=== PATIENT | female | born 1940 | race Caucasian/White ===

== ENCOUNTER 2017-12-24 13:49 | Inpatient (IN) | payer MEDICARE, OTHER ==
[~2017-12-24] VITALS: Ht 154.9 cm; Wt 65.3 kg
[~2017-12-24 13:49] MED LIST: ALPR0.257 PO; AMLO5TAB2 PO; ASPI-650 PO; ATOR40TA78 PO; CITA10TA4 PO; HYDR-882 PO; HYDR12.53 PO; LIRA0.6P SQ; LOSA100T6 PO; LOSA50TA2 PO; METF500T9 PO; METO25TA35 PO; MULT-709 PO; POTA20TA14 PO; SITA50TA PO; magnesium PO; vitamin D PO
[2017-12-24] MEDS ORDERED: CEFTRIAXONE PMX 1GM/50ML 50 ML ONE (14:58)
[2017-12-24] MEDS ORDERED: SODIUM CHLORIDE FLUSH 10ML SYR IVF ONE (15:00)
[2017-12-24] MEDS ORDERED: CEFTRIAXONE PMX 1GM/50ML 50 ML IVPB ONE (15:00)
[2017-12-24 15:35] LABS: ALBUMIN 3.9 g/dL (3.4-5.0); ANION GAP 8 mmol/L (5-15); CALCIUM 9.5 mg/dL (8.5-10.1); CHLORIDE 105 mmol/L (98-107); CREATININE 1.41 mg/dL (0.55-1.02)
[2017-12-24 15:39] LABS: BASOPHILS # (AUTO) 0.05 x10^3/uL (0-0.1); BASOPHILS % (AUTO) 0 % (0-1); EOSINOPHILS # (AUTO) 0.04 x10^3/uL (0-0.4); EOSINOPHILS % (AUTO) 0 % (1-7); LYMPHOCYTES % (AUTO) 15 % (22-44); MD NO; MEAN CORPUSCULAR HGB CONC 33.4 g/dL (32.4-35.8); MEAN CORPUSCULAR VOLUME 89.8 fL (80-100); MEAN PLATELET VOLUME 8.2 fL (7.4-10.4); MONOCYTES % (AUTO) 5 % (2-9); NEUTROPHILS # (AUTO) 8.63 x10^3/uL (1.8-6.8); NEUTROPHILS % (AUTO) 80 % (42-75); PLATELET COUNT 181 x10^3/uL (130-400); RED BLOOD COUNT 4.52 x10^6/uL (3.82-5.3); RED CELL DISTRIBUTION WIDTH 13.7 % (9.6-15.2)
[2017-12-24] MEDS ORDERED: ACETAMINOPHEN 325 MG TABLET PO PRN (16:30)
[2017-12-24] MEDS ORDERED: BISACODYL 10 MG SUPP PR PRN (16:30)
[2017-12-24] MEDS ORDERED: DOCUSATE 100 MG CAPSULE PO PRN (16:30)
[2017-12-24] MEDS ORDERED: LABETALOL 5MG/ML, 20ML IVPush PRN (16:30)
[2017-12-24] MEDS ORDERED: ONDANSETRON ODT 4 MG PO PRN (16:30)
[2017-12-24] MEDS ORDERED: ENALAPRILAT 1.25 MG/ML, 2ML IVPush PRN (16:30)
[2017-12-24 16:36] LABS: HCT (SEDRATE) 40.6 % (34.6-47.8)
[2017-12-24 17:07] LABS: HEMOGLOBIN A1C 7.5 % (4.2-6.3)
[2017-12-24 17:21] VITALS: BP 101/66
[2017-12-24] MEDS: SODIUM CHLORIDE 0.9% 1,000 ML IV SCH (18:28)
[2017-12-24] MEDS: HEPARIN 5,000 UNITS/ML, 1ML SQ SCH (18:28)
[2017-12-24] MEDS: CLINDAMYCIN PMX 600MG/50ML 50 ML IV SCH (18:28)
[2017-12-24 19:28] VITALS: BP 108/70
[2017-12-24] MEDS: INSULIN LISPRO 100 UNITS/ML, PEN SQ-INSULIN SCH (20:33)
[2017-12-24] MEDS: METOPROLOL TARTRATE 25 MG TABLET PO SCH (21:13)
[2017-12-25 01:39] VITALS: BP 144/84
[2017-12-25] MEDS: HEPARIN 5,000 UNITS/ML, 1ML SQ SCH ×3 (02:30→18:17)
[2017-12-25] MEDS: CLINDAMYCIN PMX 600MG/50ML 50 ML IV SCH ×3 (02:30→18:16)
[2017-12-25] MEDS: SODIUM CHLORIDE 0.9% 1,000 ML IV SCH ×2 (03:09→15:05)
[2017-12-25 05:45] LABS: BASOPHILS # (AUTO) 0.03 x10^3/uL (0-0.1); BASOPHILS % (AUTO) 0 % (0-1); EOSINOPHILS # (AUTO) 0.11 x10^3/uL (0-0.4); EOSINOPHILS % (AUTO) 1 % (1-7); LYMPHOCYTES % (AUTO) 27 % (22-44); MD NO; MEAN CORPUSCULAR HGB CONC 34.1 g/dL (32.4-35.8); MEAN CORPUSCULAR VOLUME 90.8 fL (80-100); MEAN PLATELET VOLUME 8.4 fL (7.4-10.4); MONOCYTES # (AUTO) 0.52 x10^3/uL (0.2-0.8); MONOCYTES % (AUTO) 6 % (2-9); NEUTROPHILS # (AUTO) 5.92 x10^3/uL (1.8-6.8); NEUTROPHILS % (AUTO) 66 % (42-75); PLATELET COUNT 169 x10^3/uL (130-400); RED BLOOD COUNT 4.05 x10^6/uL (3.82-5.3); RED CELL DISTRIBUTION WIDTH 13.6 % (9.6-15.2)
[2017-12-25 05:50] LABS: ANION GAP 10 mmol/L (5-15); CALCIUM 8.6 mg/dL (8.5-10.1); CHLORIDE 108 mmol/L (98-107)
[2017-12-25 05:56] LABS: CHOL/HDL RATIO 2.2; CHOLESTEROL, TOTAL 114 mg/dL (140-239); CREATININE 1.05 mg/dL (0.55-1.02); HDL CHOL % 46 % (28-40); HDL CHOLESTEROL (DIRECT) 53 mg/dL (40-60); LDL CHOLESTEROL,CALCULATED 45 mg/dL (54-169); LDL/HDL RATIO 0.8 (0.5-3.0); TRIGLYCERIDES 82 mg/dL (50-200); VLDL CHOLESTEROL 16 mg/dL (0-25)
[2017-12-25 07:33] VITALS: BP 139/74
[2017-12-25] MEDS: INSULIN LISPRO 100 UNITS/ML, PEN SQ-INSULIN SCH ×4 (07:34→20:52)
[2017-12-25] MEDS ORDERED: LOSA25TA5 PO (08:57)
[2017-12-25] MEDS ORDERED: METO25TA35 PO (08:57)
[2017-12-25] MEDS ORDERED: ROSU40TA PO (08:57)
[2017-12-25 09:09] VITALS: BP 127/84
[2017-12-25] MEDS: MULTIVITAMINS/MINERALS TABLET PO SCH (09:11)
[2017-12-25] MEDS: SENNA/DOCUSATE TABLET PO SCH (09:11)
[2017-12-25] MEDS: METOPROLOL TARTRATE 25 MG TABLET PO SCH (09:11)
[2017-12-25] MEDS: ASPIRIN 81 MG TABLET EC PO SCH (09:12)
[2017-12-25] MEDS: POTASSIUM CHLORIDE 20 MEQ TAB.ER.PRT PO SCH (09:12)
[2017-12-25] MEDS: CITALOPRAM 10 MG TABLET PO SCH (09:12)
[2017-12-25] MEDS: LOSARTAN 50MG TABLET PO SCH (09:12)
[2017-12-25] MEDS: HYDROCHLOROTHIAZIDE 12.5 MG CAPSULE PO SCH (09:13)
[2017-12-25 13:33] VITALS: BP 122/76
[2017-12-25] MEDS ORDERED: GADOBUTROL 7.5 MMOL/7.5 ML PFS ONE (17:33)
[2017-12-25 19:54] VITALS: BP 116/70
[2017-12-26 01:49] VITALS: BP 109/66
[2017-12-26] MEDS: CLINDAMYCIN PMX 600MG/50ML 50 ML IV SCH ×3 (02:54→19:39)
[2017-12-26] MEDS: SODIUM CHLORIDE 0.9% 1,000 ML IV SCH ×3 (02:55→23:33)
[2017-12-26] MEDS: HEPARIN 5,000 UNITS/ML, 1ML SQ SCH ×3 (03:06→19:39)
[2017-12-26 05:13] LABS: ANION GAP 7 mmol/L (5-15); CALCIUM 8.3 mg/dL (8.5-10.1); CHLORIDE 110 mmol/L (98-107); CREATININE 1.03 mg/dL (0.55-1.02)
[2017-12-26] MEDS: INSULIN LISPRO 100 UNITS/ML, PEN SQ-INSULIN SCH ×4 (07:00→20:12)
[2017-12-26 09:05] VITALS: BP 142/71
[2017-12-26] MEDS: CHOLECALCIFEROL 400 UNITS TABLET PO SCH (10:16)
[2017-12-26] MEDS: MULTIVITAMINS/MINERALS TABLET PO SCH (10:17)
[2017-12-26] MEDS: METOPROLOL TARTRATE 25 MG TABLET PO SCH (10:17)
[2017-12-26] MEDS: LOSARTAN 50MG TABLET PO SCH (10:17)
[2017-12-26] MEDS: HYDROCHLOROTHIAZIDE 12.5 MG CAPSULE PO SCH (10:17)
[2017-12-26] MEDS: ASPIRIN 81 MG TABLET EC PO SCH (10:17)
[2017-12-26] MEDS: SENNA/DOCUSATE TABLET PO SCH (10:18)
[2017-12-26] MEDS: POTASSIUM CHLORIDE 20 MEQ TAB.ER.PRT PO SCH (10:18)
[2017-12-26] MEDS: MAGNESIUM OXIDE 400 MG TABLET PO SCH (10:19)
[2017-12-26] MEDS: CITALOPRAM 10 MG TABLET PO SCH (10:21)
[2017-12-26 14:52] VITALS: BP 141/75
[2017-12-26 19:40] VITALS: BP 149/89
[2017-12-27 01:52] VITALS: BP 141/82
[2017-12-27] MEDS: HEPARIN 5,000 UNITS/ML, 1ML SQ SCH ×2 (03:14→10:48)
[2017-12-27] MEDS: CLINDAMYCIN PMX 600MG/50ML 50 ML IV SCH ×2 (03:14→10:49)
[2017-12-27 05:57] LABS: BASOPHILS # (AUTO) 0.02 x10^3/uL (0-0.1); BASOPHILS % (AUTO) 0 % (0-1); EOSINOPHILS % (AUTO) 1 % (1-7); LYMPHOCYTES # (AUTO) 2.22 x10^3/uL (1-3.4); LYMPHOCYTES % (AUTO) 25 % (22-44); MD NO; MEAN CORPUSCULAR HEMOGLOBIN 30.4 pg (27.0-34.8); MEAN CORPUSCULAR VOLUME 89.3 fL (80-100); MEAN PLATELET VOLUME 8.6 fL (7.4-10.4); MONOCYTES # (AUTO) 0.68 x10^3/uL (0.2-0.8); MONOCYTES % (AUTO) 8 % (2-9); NEUTROPHILS # (AUTO) 5.76 x10^3/uL (1.8-6.8); NEUTROPHILS % (AUTO) 66 % (42-75); PLATELET COUNT 187 x10^3/uL (130-400); RED BLOOD COUNT 3.75 x10^6/uL (3.82-5.3); RED CELL DISTRIBUTION WIDTH 13.6 % (9.6-15.2)
[2017-12-27 06:09] LABS: ALANINE AMINOTRANSFERASE 74 U/L (12-78); ALBUMIN 2.9 g/dL (3.4-5.0); ANION GAP 11 mmol/L (5-15); CALCIUM 8.9 mg/dL (8.5-10.1); CHLORIDE 107 mmol/L (98-107); CREATININE 0.95 mg/dL (0.55-1.02)
[2017-12-27 06:11] LABS: ALKALINE PHOSPHATASE 68 U/L (45-117); BILIRUBIN,TOTAL 0.8 mg/dL (0.2-1.0); TOTAL PROTEIN 7.3 g/dL (6.4-8.2)
[2017-12-27] MEDS: INSULIN LISPRO 100 UNITS/ML, PEN SQ-INSULIN SCH ×2 (08:05→11:00)
[2017-12-27 08:36] VITALS: BP 93/66
[2017-12-27] MEDS: LOSARTAN 50MG TABLET PO SCH (08:49)
[2017-12-27] MEDS: METOPROLOL TARTRATE 25 MG TABLET PO SCH (08:49)
[2017-12-27] MEDS: HYDROCHLOROTHIAZIDE 12.5 MG CAPSULE PO SCH (08:50)
[2017-12-27] MEDS: POTASSIUM CHLORIDE 20 MEQ TAB.ER.PRT PO SCH (08:55)
[2017-12-27] MEDS: ASPIRIN 81 MG TABLET EC PO SCH (08:55)
[2017-12-27] MEDS: CITALOPRAM 10 MG TABLET PO SCH (08:55)
[2017-12-27] MEDS: MAGNESIUM OXIDE 400 MG TABLET PO SCH (08:55)
[2017-12-27] MEDS: SODIUM CHLORIDE 0.9% 1,000 ML IV SCH (08:55)
[2017-12-27] MEDS: MULTIVITAMINS/MINERALS TABLET PO SCH (08:55)
[2017-12-27] MEDS: CHOLECALCIFEROL 400 UNITS TABLET PO SCH (08:55)
[2017-12-27] MEDS: SENNA/DOCUSATE TABLET PO SCH (08:56)
[2017-12-27 14:00] VITALS: BP 144/87
[2017-12-27] MEDS ORDERED: SULF1TAB24 PO (14:01)
[2017-12-27] MEDS ORDERED: IBUP-1221 PO (14:01)
[2017-12-27] MEDS ORDERED: METO25TA35 PO (14:01)
[2017-12-27] MEDS ORDERED: AMOX1TAB64 PO (14:01)
[2017-12-27] MEDS ORDERED: LOSARTAN 25MG TABLET PO SCH (21:00)
== END 2017-12-27 15:24 | disposition home or self-care (01) | DRG 602 ==
LOC: ED 14:50 → EDIP 14:51 → ED 15:13 → 3NE 17:03
PROVIDERS: ADMIT Internal Medicine; ATTEND Internal Medicine
DX: L03.116 Cellulitis of left lower limb (principal); N17.0 Acute kidney failure with tubular necrosis; E11.9 Type 2 diabetes mellitus without complications; E78.5 Hyperlipidemia, unspecified; I10 Essential (primary) hypertension; I25.10 Atherosclerotic heart disease of native coronary artery without angina pectoris; K21.9 Gastro-esophageal reflux disease without esophagitis; Z95.5 Presence of coronary angioplasty implant and graft; I25.2 Old myocardial infarction
CPT/HCPCS: 36415; 71045; 80048; 80053; 80061; 82040; 82962; 83036; 83605; 84550; 85025; 85651; 87040; 99285; A9585; J0696; J1644; J7030

== ENCOUNTER 2018-05-24 12:59 | Emergency (ER) | payer MEDICARE, OTHER ==
[~2018-05-24] VITALS: Ht 154.9 cm; Wt 62.3 kg
[~2018-05-24 12:59] MED LIST changes: -AMLO5TAB2 PO; +AMLO5TAB7 PO; +AMOX1TAB64 PO; +HYDR-3653 PO; -HYDR-882 PO; +IBUP-1221 PO; -LOSA100T6 PO; +LOSA100T7 PO; +LOSA25TA6 PO; +ROSU40TA PO; +SULF1TAB24 PO
[2018-05-24 13:57] LABS: BASOPHILS # (AUTO) 0.02 x10^3/uL (0-0.1); BASOPHILS % (AUTO) 0 % (0-1); EOSINOPHILS # (AUTO) 0.34 x10^3/uL (0-0.4); EOSINOPHILS % (AUTO) 5 % (1-7); LYMPHOCYTES # (AUTO) 2.36 x10^3/uL (1-3.4); LYMPHOCYTES % (AUTO) 37 % (22-44); MD NO; MEAN CORPUSCULAR HEMOGLOBIN 29.6 pg (27.0-34.8); MEAN CORPUSCULAR HGB CONC 33.2 g/dL (32.4-35.8); MEAN CORPUSCULAR VOLUME 89.1 fL (80-100); MEAN PLATELET VOLUME 8.2 fL (7.4-10.4); MONOCYTES # (AUTO) 0.43 x10^3/uL (0.2-0.8); MONOCYTES % (AUTO) 7 % (2-9); NEUTROPHILS % (AUTO) 50 % (42-75); PLATELET COUNT 190 x10^3/uL (130-400); RED BLOOD COUNT 4.77 x10^6/uL (3.82-5.3); RED CELL DISTRIBUTION WIDTH 15.8 % (9.6-15.2)
[2018-05-24 14:09] LABS: ALBUMIN 4.1 g/dL (3.4-5.0); ANION GAP 5 mmol/L (5-15); CALCIUM 9.3 mg/dL (8.5-10.1); CHLORIDE 111 mmol/L (98-107)
[2018-05-24 14:28] LABS: MICROSCOPIC AUTO
[2018-05-24 14:33] LABS: CULTURE INDICATED? YES
[2018-05-24 15:30] VITALS: BP 112/72
== END 2018-05-24 16:28 | disposition home or self-care (01) ==
LOC: ED 14:09
DX: H92.11 Otorrhea, right ear (principal); M79.18 Myalgia, other site; E11.9 Type 2 diabetes mellitus without complications; I10 Essential (primary) hypertension
CPT/HCPCS: 36415; 70450; 80048; 81001; 82040; 85025; 87086; 93005; 99285

== ENCOUNTER 2018-11-18 18:23 | Inpatient (IN) | payer MEDICARE, OTHER ==
[~2018-11-18] VITALS: Ht 152.4 cm; Wt 63.1 kg
[~2018-11-18 18:23] MED LIST changes: +AMLO-150 PO; -AMLO5TAB7 PO; +HYDR12.517 PO; -HYDR12.53 PO; +LOSA100T14 PO; -LOSA100T7 PO; +LOSA25TA25 PO; -LOSA25TA6 PO
[2018-11-18 18:43] LABS: BASOPHILS # (AUTO) 0.03 x10^3/uL (0-0.1); BASOPHILS % (AUTO) 0 % (0-1); EOSINOPHILS # (AUTO) 0.13 x10^3/uL (0-0.4); EOSINOPHILS % (AUTO) 1 % (1-7); LYMPHOCYTES # (AUTO) 3.58 x10^3/uL (1-3.4); LYMPHOCYTES % (AUTO) 39 % (22-44); MD NO; MEAN CORPUSCULAR HEMOGLOBIN 30.8 pg (27.0-34.8); MEAN CORPUSCULAR HGB CONC 33.6 g/dL (32.4-35.8); MEAN CORPUSCULAR VOLUME 91.9 fL (80-100); MONOCYTES # (AUTO) 0.47 x10^3/uL (0.2-0.8); MONOCYTES % (AUTO) 5 % (2-9); NEUTROPHILS # (AUTO) 5.01 x10^3/uL (1.8-6.8); NEUTROPHILS % (AUTO) 54 % (42-75); PLATELET COUNT 189 x10^3/uL (130-400); RED BLOOD COUNT 4.73 x10^6/uL (3.82-5.3); RED CELL DISTRIBUTION WIDTH 14.4 % (9.6-15.2)
[2018-11-18 18:50] LABS: TROPONIN I < 0.015 ng/mL (0.000-0.045)
[2018-11-18 18:58] LABS: ALBUMIN 3.7 g/dL (3.4-5.0)
--- NOTE | 2018-11-18 18:58 | NUR ---
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
[2018-11-18 19:00] LABS: BILIRUBIN, DIRECT 0.1 mg/dL (0.1-0.2)
[2018-11-18 19:01] LABS: BILIRUBIN,INDIRECT 0.3 mg/dL (0.0-2.0); BILIRUBIN,TOTAL 0.4 mg/dL (0.2-1.0); TOTAL PROTEIN 7.7 g/dL (6.4-8.2)
--- NOTE | 2018-11-18 19:01 | NUR ---
PT RETURNED FROM CT, HOB AT 30 DEGREES. PT PWD; PT FOLLOWING COMMANDS, SPEECH CLEAR. FACE SYMMETRICAL. PT REPORTS IMPROVEMENT IN [place]. BP/SPO2/ECG MONITORING IN PLACE. NSR ON MONITOR. FAMILY AT BEDSIDE LAB IN TO REDRAW
[2018-11-18 19:20] LABS: INTERNATIONAL NORMALIZED RATIO 1.02 (0.93-1.1); PROTHROMBIN TIME 10.7 Seconds (9.6-11.5)
--- NOTE | 2018-11-18 19:22 | NUR ---
STRAIGHT CATH COMPLETED. UA COLLECTED AND WALKED TO LAB. PT W/ FREQUENT QUESTIONING "HOW DID I GET HERE?", EASILY REORIENTED. PT OTHERWISE A&OX4. +STRENGTH X 4.
[2018-11-18] MEDS ORDERED: EZETIMIBE (19:31)
[2018-11-18] MEDS ORDERED: BUPROPRION (19:31)
--- NOTE | 2018-11-18 19:31 | NUR ---
PT REMAINS STABLE. PT DOWN GRADED TO CORE ROOM. REPORT TO SANTI HERR
[2018-11-18 19:38] LABS: MICROSCOPIC INDICATED
[2018-11-18 19:52] LABS: CULTURE INDICATED? YES
--- NOTE | 2018-11-18 20:22 | NUR ---
PHYSICIAN AT BEDSIDE. UPDATED ON POC.
[2018-11-18] MEDS ORDERED: CALCIUM GLUCONATE 9.2 MEQ in SODIUM CHLORIDE 0.9% 100 ML IV ONE (21:00)
[2018-11-18] MEDS ORDERED: ONDANSETRON 2MG/ML, 2ML IVPush PRN (21:00)
[2018-11-18] MEDS ORDERED: SODIUM POLYSTYRENE SULFONATE ORAL SUSP PO ONE ×2 (21:00→21:30)
[2018-11-18] MEDS ORDERED: CEFTRIAXONE PMX 1GM/50ML 50 ML IV ONE (21:00)
[2018-11-18] MEDS ORDERED: CEFTRIAXONE PMX 1GM/50ML 50 ML ONE (21:17)
--- NOTE | 2018-11-18 21:48 | NUR ---
REPORT GIVEN TO JONATHAN HANCOCK.
[2018-11-18 22:02] VITALS: BP 112/78
[2018-11-18] MEDS: SODIUM CHLORIDE 0.9% 1,000 ML IV SCH (22:23)
[2018-11-18] MEDS: INSULIN LISPRO 100 UNITS/ML, PEN SQ-INSULIN SCH (22:41)
[2018-11-19] VITALS (8 sets, daily range): BP systolic 89–137; BP diastolic 61–88
[2018-11-19 04:56] LABS: ANION GAP 4 mmol/L (5-15); CHLORIDE 113 mmol/L (98-107)
[2018-11-19 05:00] LABS: CREATININE 1.33 mg/dL (0.55-1.02); TROPONIN I < 0.015 ng/mL (0.000-0.045)
[2018-11-19 05:03] LABS: BASOPHILS # (AUTO) 0.03 x10^3/uL (0-0.1); BASOPHILS % (AUTO) 0 % (0-1); EOSINOPHILS # (AUTO) 0.11 x10^3/uL (0-0.4); EOSINOPHILS % (AUTO) 2 % (1-7); LYMPHOCYTES # (AUTO) 2.41 x10^3/uL (1-3.4); LYMPHOCYTES % (AUTO) 35 % (22-44); MD NO; MEAN CORPUSCULAR HGB CONC 33.6 g/dL (32.4-35.8); MEAN CORPUSCULAR VOLUME 92.3 fL (80-100); MEAN PLATELET VOLUME 7.7 fL (7.4-10.4); MONOCYTES # (AUTO) 0.34 x10^3/uL (0.2-0.8); MONOCYTES % (AUTO) 5 % (2-9); NEUTROPHILS # (AUTO) 4.06 x10^3/uL (1.8-6.8); NEUTROPHILS % (AUTO) 58 % (42-75); PLATELET COUNT 168 x10^3/uL (130-400); RED BLOOD COUNT 4.35 x10^6/uL (3.82-5.3); RED CELL DISTRIBUTION WIDTH 14.4 % (9.6-15.2)
[2018-11-19 05:34] LABS: HEMOGLOBIN A1C 6.9 % (4.2-6.3)
[2018-11-19] MEDS: INSULIN LISPRO 100 UNITS/ML, PEN SQ-INSULIN SCH ×4 (08:15→21:00)
[2018-11-19] MEDS: SODIUM CHLORIDE 0.9% 1,000 ML IV SCH ×2 (08:59→17:25)
[2018-11-19] MEDS ORDERED: LINAGLIPTIN 5 MG TAB PO SCH (09:00)
[2018-11-19] MEDS: BUPROPION SR 100 MG TABLET PO SCH ×2 (10:31→21:31)
[2018-11-19] MEDS: ASPIRIN 81 MG TABLET EC PO SCH (10:31)
[2018-11-19] MEDS: METOPROLOL SUCCINATE 50 MG TAB.ER.24H PO SCH (10:34)
[2018-11-19 15:25] LABS: CLOSTRIDIUM DIFFICILE ANTIGEN NEGATIVE; CLOSTRIDIUM DIFFICILE TOXIN NEGATIVE (Negative)
[2018-11-19 15:49] LABS: ANION GAP 7 mmol/L (5-15); CALCIUM 9.6 mg/dL (8.5-10.1); CHLORIDE 113 mmol/L (98-107); CREATININE 1.11 mg/dL (0.55-1.02)
[2018-11-19] MEDS ORDERED: ATORVASTATIN 20 MG TABLET PO SCH (21:00)
[2018-11-20 01:18] VITALS: BP 120/65
[2018-11-20 03:00] VITALS: BP_SYST 115; BP_SYST 119; BP_SYST 125; BP_SYST 162; BP_DIAS 81; BP_DIAS 83; BP_DIAS 85; BP_DIAS 86
[2018-11-20] MEDS: SODIUM CHLORIDE 0.9% 1,000 ML IV SCH (04:29)
[2018-11-20] MEDS: METOPROLOL SUCCINATE 50 MG TAB.ER.24H PO SCH (05:57)
[2018-11-20 05:59] LABS: CALCIUM 8.7 mg/dL (8.5-10.1); CHLORIDE 116 mmol/L (98-107)
[2018-11-20 06:02] LABS: ANION GAP 7 mmol/L (5-15)
[2018-11-20 06:58] VITALS: BP 115/78
[2018-11-20] MEDS: INSULIN LISPRO 100 UNITS/ML, PEN SQ-INSULIN SCH ×3 (07:00→16:00)
[2018-11-20 08:08] VITALS: BP 165/85
[2018-11-20] MEDS: ASPIRIN 81 MG TABLET EC PO SCH (08:08)
[2018-11-20] MEDS: BUPROPION SR 100 MG TABLET PO SCH (08:08)
[2018-11-20 08:11] VITALS: BP 122/82
[2018-11-20] MEDS ORDERED: REGADENOSON 0.4 MG/5 ML SYRINGE ONE (08:17)
[2018-11-20] MEDS ORDERED: OMNIPAQUE 350 MG/ML, 100ML BOTTLE ONE (11:05)
[2018-11-20 13:43] VITALS: BP 132/82
[2018-11-20] MEDS ORDERED: BUPR-173 PO (16:34)
[2018-11-20] MEDS ORDERED: EZET10TA26 PO (16:34)
[2018-11-20] MEDS ORDERED: METO-93 PO (16:34)
== END 2018-11-20 17:07 | disposition home or self-care (01) | DRG 73 ==
LOC: ED 18:44 → EDIP 20:32 → 5SO 22:12 → DCLOUNGE 11-20 16:55
PROVIDERS: ADMIT Internal Medicine; ATTEND Internal Medicine
PROC: 0T9B70Z Drainage of Bladder with Drainage Device, Via Natural or Artificial Opening (ICD-10-PCS; principal; 2018-11-18)
DX: G90.9 Disorder of the autonomic nervous system, unspecified (principal); N17.0 Acute kidney failure with tubular necrosis; G93.41 Metabolic encephalopathy; N39.0 Urinary tract infection, site not specified; E11.51 Type 2 diabetes mellitus with diabetic peripheral angiopathy without gangrene; F41.9 Anxiety disorder, unspecified; F32.9 Major depressive disorder, single episode, unspecified; E11.649 Type 2 diabetes mellitus with hypoglycemia without coma; E87.5 Hyperkalemia; E78.5 Hyperlipidemia, unspecified; I10 Essential (primary) hypertension; I25.10 Atherosclerotic heart disease of native coronary artery without angina pectoris; I25.2 Old myocardial infarction; Z79.4 Long term (current) use of insulin; Z79.82 Long term (current) use of aspirin; Z79.899 Other long term (current) drug therapy; Z95.5 Presence of coronary angioplasty implant and graft
CPT/HCPCS: 36415; 70450; 71045; 71275; 74174; 78452; 80047; 80048; 80076; 81001; 82962; 83036; 83735; 84443; 84484; 85025; 85379; 85610; 85730; 87040; 87086; 87324; 93005; 93017; 93306; 93880; 96374; G0378; J0610; J0696; J2785; Q9967; A9502; C9898; J1815; J7030

== ENCOUNTER 2019-08-15 08:53 | Outpatient (CLI) | payer MEDICARE, OTHER ==
[~2019-08-15 08:53] MED LIST changes: +BUPR-173 PO; +BUPROPRION; +EZET10TA48 PO; +EZETIMIBE; +METF500T12 PO; -METF500T9 PO; +METO-93 PO
== END 2019-08-15 23:59 | disposition home or self-care (01) ==
LOC: CVU 08:53
PROVIDERS: ATTEND Internal Medicine Cardiovascular Disease
DX: I67.9 Cerebrovascular disease, unspecified (principal); I70.0 Atherosclerosis of aorta; I25.10 Atherosclerotic heart disease of native coronary artery without angina pectoris; E78.5 Hyperlipidemia, unspecified; I10 Essential (primary) hypertension
CPT/HCPCS: 93978

== ENCOUNTER → 2019-09-06 | Outpatient (CLI) | payer MEDICARE, OTHER | END | disposition home or self-care (01) | LOC: CVU 08:26 | PROVIDERS: ATTEND Internal Medicine Cardiovascular Disease | DX: I65.23 Occlusion and stenosis of bilateral carotid arteries (principal); I10 Essential (primary) hypertension; E78.5 Hyperlipidemia, unspecified; I25.2 Old myocardial infarction | CPT/HCPCS: 93880 ==

== ENCOUNTER 2020-02-10 17:55 | Inpatient (IN) | payer MEDICARE, OTHER ==
[~2020-02-10] VITALS: Ht 154.9 cm; Wt 59.0 kg
[~2020-02-10 17:55] MED LIST changes: +METF-754 PO; -METF500T12 PO
--- NOTE | 2020-02-10 18:44 | NUR ---
PT BIB [facility] FOR C/O FATIGUE AND GENERAL MALAISE. PT DENIES ANY PAIN OR FURTHER SYMPTOMS. PT DAUGHTER AT BEDSIDE, STATES PT HAS NOT EATEN FOR 3 DAYS, AND HAS HAD LITTLE TO DRINK. EKG PERFORMED. LAB AT BEDSIDE FOR DRAW. PT DENIES ANY NEEDS NOE. CALL LIGHT IN REACH.
--- NOTE | 2020-02-10 18:52 | NUR ---
REPORT FROM MELVA HANCOCK.
[2020-02-10 18:55] LABS: BASOPHILS # (AUTO) 0.02 x10^3/uL (0-0.1); BASOPHILS % (AUTO) 0 % (0-1); EOSINOPHILS # (AUTO) 0.13 x10^3/uL (0-0.4); EOSINOPHILS % (AUTO) 2 % (1-7); LYMPHOCYTES # (AUTO) 1.34 x10^3/uL (1-3.4); LYMPHOCYTES % (AUTO) 23 % (22-44); MD NO; MEAN CORPUSCULAR HEMOGLOBIN 28.2 pg (27.0-34.8); MEAN CORPUSCULAR HGB CONC 32.6 g/dL (32.4-35.8); MEAN CORPUSCULAR VOLUME 86.3 fL (80-100); MEAN PLATELET VOLUME 7.6 fL (7.4-10.4); MONOCYTES # (AUTO) 0.52 x10^3/uL (0.2-0.8); MONOCYTES % (AUTO) 9 % (2-9); NEUTROPHILS # (AUTO) 3.87 x10^3/uL (1.8-6.8); NEUTROPHILS % (AUTO) 66 % (42-75); PLATELET COUNT 237 x10^3/uL (130-400); RED BLOOD COUNT 5.24 x10^6/uL (3.82-5.3); RED CELL DISTRIBUTION WIDTH 15.4 % (9.6-15.2)
[2020-02-10 19:08] LABS: ALANINE AMINOTRANSFERASE 56 U/L (12-78); ANION GAP 12 mmol/L (5-15); CALCIUM 8.6 mg/dL (8.5-10.1); CHLORIDE 107 mmol/L (98-107)
[2020-02-10 19:13] LABS: ALKALINE PHOSPHATASE 63 U/L (45-117); BILIRUBIN,TOTAL 0.6 mg/dL (0.2-1.0); TOTAL PROTEIN 8.5 g/dL (6.4-8.2)
[2020-02-10 19:15] LABS: TROPONIN I 0.183 ng/mL (0.000-0.045)
--- NOTE | 2020-02-10 19:44 | NUR ---
ASSISTED PT TO BEDSIDE COMODE. URINE SAMPLE COLLECTED. IV PLACED. FALL PRECAUTIONS IN PLACE. DAUGHTER AT BEDSIDE.
[2020-02-10 19:53] LABS: MICROSCOPIC INDICATED
[2020-02-10] MEDS ORDERED: ENOXAPARIN 60 MG/0.6 ML SQ ONE (20:30)
[2020-02-10] MEDS ORDERED: ONDANSETRON 2MG/ML, 2ML IVPush PRN (21:00)
[2020-02-10] MEDS ORDERED: NITROGLYCERIN 0.4 MG BOTTLE (25 TABS) SL PRN (21:00)
[2020-02-10] MEDS: metFORMIN XR 500 MG TAB.ER.24H PO SCH (21:00)
[2020-02-10] MEDS ORDERED: Enoxaparin 1 mg/kg protocol SQ SCH (21:00)
[2020-02-10] MEDS ORDERED: morphine SULFATE 10 MG/ML, 1ML IVPush PRN (21:00)
[2020-02-10] MEDS ORDERED: hydrALAzine 20 MG/ML, 1ML IVPush PRN (21:00)
[2020-02-10] MEDS ORDERED: ENOXAPARIN 60 MG/0.6 ML ONE (21:06)
[2020-02-10] MEDS ORDERED: FAMOTIDINE 20 MG TABLET ONE (21:07)
--- NOTE | 2020-02-10 21:14 | NUR ---
REPORT GIVEN TO CLAUDIO HANCOCK.
[2020-02-10 21:49] LABS: CREATINE KINASE, TOTAL 100 U/L (26-192)
[2020-02-10 21:50] LABS: TROPONIN I 0.182 ng/mL (0.000-0.045)
--- NOTE | 2020-02-10 21:53 | NUR ---
REPORT GIVEN TO YULIYA HANCOCK.
--- NOTE | 2020-02-10 22:21 | NUR ---
DAUGHTER MERRILL IS CONTACT [phone], PER PT OKAY TO CALL DAUGHTER.
[2020-02-10] MEDS: INSULIN LISPRO 100 UNITS/ML, PEN SQ-INSULIN SCH (23:00)
[2020-02-10] MEDS ORDERED: ASPIRIN MC SCH (23:00)
[2020-02-10] MEDS: ENOXAPARIN 60 MG/0.6 ML SQ SCH (23:01)
[2020-02-10] MEDS: FAMOTIDINE 20 MG TABLET PO SCH (23:01)
[2020-02-10] MEDS: ATORVASTATIN 80 MG TABLET PO SCH (23:01)
[2020-02-10] MEDS: BUPROPION SR 100 MG TABLET PO SCH (23:52)
[2020-02-10 23:54] VITALS: BP 135/84
[2020-02-11 02:20] VITALS: BP 130/82
[2020-02-11 05:29] LABS: ANION GAP 10 mmol/L (5-15); CALCIUM 8.9 mg/dL (8.5-10.1); CHLORIDE 105 mmol/L (98-107); CHOLESTEROL, TOTAL 127 mg/dL (140-239); CREATININE 1.05 mg/dL (0.55-1.02); TRIGLYCERIDES 154 mg/dL (50-200); VLDL CHOLESTEROL 31 mg/dL (0-25)
[2020-02-11 05:33] LABS: BASOPHILS # (AUTO) 0.02 x10^3/uL (0-0.1); BASOPHILS % (AUTO) 0 % (0-1); CHOL/HDL RATIO 3.4; CREATINE KINASE, TOTAL 93 U/L (26-192); EOSINOPHILS # (AUTO) 0.21 x10^3/uL (0-0.4); EOSINOPHILS % (AUTO) 3 % (1-7); FREE T4 (FREE THYROXINE) 1.46 ng/dL (0.76-1.46); HDL CHOL % 29 % (28-40); HDL CHOLESTEROL (DIRECT) 37 mg/dL (40-60); LDL CHOLESTEROL,CALCULATED 59 mg/dL (54-169); LDL/HDL RATIO 1.6 (0.5-3.0); LYMPHOCYTES # (AUTO) 2.17 x10^3/uL (1-3.4); LYMPHOCYTES % (AUTO) 32 % (22-44); MD NO; MEAN CORPUSCULAR HEMOGLOBIN 28.3 pg (27.0-34.8); MEAN CORPUSCULAR HGB CONC 32.7 g/dL (32.4-35.8); MEAN CORPUSCULAR VOLUME 86.7 fL (80-100); MEAN PLATELET VOLUME 7.8 fL (7.4-10.4); MONOCYTES # (AUTO) 0.55 x10^3/uL (0.2-0.8); MONOCYTES % (AUTO) 8 % (2-9); NEUTROPHILS # (AUTO) 3.75 x10^3/uL (1.8-6.8); NEUTROPHILS % (AUTO) 56 % (42-75); PLATELET COUNT 258 x10^3/uL (130-400); RED CELL DISTRIBUTION WIDTH 15.3 % (9.6-15.2); TROPONIN I 0.162 ng/mL (0.000-0.045)
[2020-02-11] MEDS ORDERED: ASPIRIN 325 MG TABLET EC PO SCH (06:00)
[2020-02-11 06:27] VITALS: BP 90/62
[2020-02-11] MEDS: INSULIN LISPRO 100 UNITS/ML, PEN SQ-INSULIN SCH ×4 (07:00→20:44)
[2020-02-11] MEDS ORDERED: EZETIMIBE 10 MG TABLET PO SCH (09:00)
[2020-02-11] MEDS ORDERED: METOPROLOL SUCCINATE 50 MG TAB.ER.24H PO SCH (09:00)
[2020-02-11] MEDS ORDERED: LOSARTAN 25MG TABLET PO SCH (09:00)
[2020-02-11] MEDS: MULTIVITAMINS/MINERALS TABLET PO SCH (09:35)
[2020-02-11] MEDS: BUPROPION SR 100 MG TABLET PO SCH ×2 (09:35→20:44)
[2020-02-11] MEDS: FAMOTIDINE 20 MG TABLET PO SCH (09:35)
[2020-02-11] MEDS: CITALOPRAM 10 MG TABLET PO SCH (09:36)
[2020-02-11] MEDS: ASPIRIN 81 MG TABLET EC PO SCH (09:37)
[2020-02-11] MEDS: ENOXAPARIN 60 MG/0.6 ML SQ SCH ×2 (11:44→20:44)
[2020-02-11 12:02] VITALS: BP 96/67
[2020-02-11 13:39] LABS: CREATINE KINASE, TOTAL 78 U/L (26-192)
[2020-02-11] MEDS ORDERED: SODIUM CHLORIDE 0.9% 1,000 ML IV ONE ×3 (16:00→16:30)
[2020-02-11] MEDS: ACETAMINOPHEN 325 MG TABLET PO PRN (16:14)
[2020-02-11 18:30] VITALS: BP 85/56
[2020-02-11] MEDS: metFORMIN XR 500 MG TAB.ER.24H PO SCH (20:44)
[2020-02-11] MEDS: ATORVASTATIN 80 MG TABLET PO SCH (20:44)
[2020-02-12 00:06] VITALS: BP 101/67
[2020-02-12 06:32] VITALS: BP 110/74
[2020-02-12] MEDS: INSULIN LISPRO 100 UNITS/ML, PEN SQ-INSULIN SCH ×4 (07:16→20:09)
[2020-02-12] MEDS: FAMOTIDINE 20 MG TABLET PO SCH (07:44)
[2020-02-12] MEDS: ASPIRIN 81 MG TABLET EC PO SCH (07:44)
[2020-02-12] MEDS: EZETIMIBE 10 MG TABLET PO SCH (07:44)
[2020-02-12] MEDS: MULTIVITAMINS/MINERALS TABLET PO SCH (07:44)
[2020-02-12] MEDS: CITALOPRAM 10 MG TABLET PO SCH (07:44)
[2020-02-12] MEDS: LOSARTAN 25MG TABLET PO SCH (07:44)
[2020-02-12] MEDS: BUPROPION SR 100 MG TABLET PO SCH ×2 (07:45→20:09)
[2020-02-12] MEDS: ENOXAPARIN 60 MG/0.6 ML SQ SCH ×2 (07:45→20:09)
[2020-02-12] MEDS: METOPROLOL SUCCINATE 50 MG TAB.ER.24H PO SCH (07:45)
[2020-02-12 12:10] VITALS: BP 98/71
[2020-02-12] MEDS: ATORVASTATIN 80 MG TABLET PO SCH (20:09)
[2020-02-12] MEDS: metFORMIN XR 500 MG TAB.ER.24H PO SCH (20:09)
[2020-02-12 20:10] VITALS: BP 102/66
[2020-02-13 00:39] VITALS: BP 114/71
[2020-02-13 06:30] LABS: BASOPHILS # (AUTO) 0.03 x10^3/uL (0-0.1); BASOPHILS % (AUTO) 0 % (0-1); EOSINOPHILS % (AUTO) 3 % (1-7); LYMPHOCYTES # (AUTO) 1.67 x10^3/uL (1-3.4); LYMPHOCYTES % (AUTO) 26 % (22-44); MD NO; MEAN CORPUSCULAR HEMOGLOBIN 28.4 pg (27.0-34.8); MEAN CORPUSCULAR HGB CONC 32.5 g/dL (32.4-35.8); MEAN CORPUSCULAR VOLUME 87.6 fL (80-100); MEAN PLATELET VOLUME 7.6 fL (7.4-10.4); MONOCYTES # (AUTO) 0.66 x10^3/uL (0.2-0.8); MONOCYTES % (AUTO) 10 % (2-9); NEUTROPHILS # (AUTO) 3.96 x10^3/uL (1.8-6.8); NEUTROPHILS % (AUTO) 61 % (42-75); PLATELET COUNT 302 x10^3/uL (130-400); RED BLOOD COUNT 4.67 x10^6/uL (3.82-5.3); RED CELL DISTRIBUTION WIDTH 15.2 % (9.6-15.2)
[2020-02-13 06:39] LABS: CHLORIDE 108 mmol/L (98-107)
[2020-02-13 06:44] VITALS: BP 117/79
[2020-02-13 06:49] LABS: ANION GAP 7 mmol/L (5-15); CALCIUM 8.8 mg/dL (8.5-10.1); CREATININE 0.96 mg/dL (0.55-1.02)
[2020-02-13] MEDS: INSULIN LISPRO 100 UNITS/ML, PEN SQ-INSULIN SCH ×4 (07:00→20:29)
[2020-02-13] MEDS: ASPIRIN 81 MG TABLET EC PO SCH (08:05)
[2020-02-13] MEDS: METOPROLOL SUCCINATE 50 MG TAB.ER.24H PO SCH (08:05)
[2020-02-13] MEDS: BUPROPION SR 100 MG TABLET PO SCH ×2 (08:05→20:29)
[2020-02-13] MEDS: LOSARTAN 25MG TABLET PO SCH (08:06)
[2020-02-13] MEDS: EZETIMIBE 10 MG TABLET PO SCH (08:06)
[2020-02-13] MEDS: MULTIVITAMINS/MINERALS TABLET PO SCH (08:06)
[2020-02-13] MEDS: FAMOTIDINE 20 MG TABLET PO SCH (08:06)
[2020-02-13] MEDS: CITALOPRAM 10 MG TABLET PO SCH (08:06)
[2020-02-13] MEDS: ENOXAPARIN 60 MG/0.6 ML SQ SCH ×2 (08:25→20:29)
[2020-02-13 10:01] LABS: C-REACTIVE PROTEIN, QUANT 1.2 mg/dL (0.02-0.49)
[2020-02-13 12:59] VITALS: BP 101/63
[2020-02-13 13:11] VITALS: BP 120/80
--- NOTE | 2020-02-13 13:31 | NUR ---
green sheet daily arm punches daily walk, x 3 daily leg kicks Addendum: 02/13/20 at 1332 by Clarissa Narvaez OT Amended: Links added.
[2020-02-13 18:56] VITALS: BP 137/82
[2020-02-13] MEDS: metFORMIN XR 500 MG TAB.ER.24H PO SCH (20:29)
[2020-02-13] MEDS: ATORVASTATIN 80 MG TABLET PO SCH (20:29)
[2020-02-14 00:23] VITALS: BP 108/72
[2020-02-14] MEDS: INSULIN LISPRO 100 UNITS/ML, PEN SQ-INSULIN SCH ×4 (07:00→20:37)
[2020-02-14 07:34] VITALS: BP 103/69
[2020-02-14] MEDS: EZETIMIBE 10 MG TABLET PO SCH (07:36)
[2020-02-14] MEDS: METOPROLOL SUCCINATE 50 MG TAB.ER.24H PO SCH (07:37)
[2020-02-14] MEDS: FAMOTIDINE 20 MG TABLET PO SCH (07:37)
[2020-02-14] MEDS: LOSARTAN 25MG TABLET PO SCH (07:37)
[2020-02-14] MEDS: CITALOPRAM 10 MG TABLET PO SCH (07:37)
[2020-02-14] MEDS: ASPIRIN 81 MG TABLET EC PO SCH (07:37)
[2020-02-14] MEDS: BUPROPION SR 100 MG TABLET PO SCH ×2 (07:37→20:36)
[2020-02-14] MEDS: MULTIVITAMINS/MINERALS TABLET PO SCH (07:37)
[2020-02-14] MEDS: ENOXAPARIN 60 MG/0.6 ML SQ SCH ×2 (08:29→20:36)
[2020-02-14 13:12] VITALS: BP 109/77
[2020-02-14] MEDS: ACETAMINOPHEN 325 MG TABLET PO PRN (16:04)
[2020-02-14 18:15] VITALS: BP 107/75
[2020-02-14] MEDS: metFORMIN XR 500 MG TAB.ER.24H PO SCH (20:36)
[2020-02-14] MEDS: ATORVASTATIN 80 MG TABLET PO SCH (20:36)
[2020-02-15 00:33] VITALS: BP 106/71
[2020-02-15 06:46] VITALS: BP 96/67
[2020-02-15] MEDS: INSULIN LISPRO 100 UNITS/ML, PEN SQ-INSULIN SCH ×4 (07:00→20:37)
[2020-02-15] MEDS: LOSARTAN 25MG TABLET PO SCH (07:50)
[2020-02-15] MEDS: METOPROLOL SUCCINATE 50 MG TAB.ER.24H PO SCH (07:50)
[2020-02-15] MEDS: BUPROPION SR 100 MG TABLET PO SCH ×2 (07:57→20:36)
[2020-02-15] MEDS: MULTIVITAMINS/MINERALS TABLET PO SCH (07:57)
[2020-02-15] MEDS: EZETIMIBE 10 MG TABLET PO SCH (07:57)
[2020-02-15] MEDS: ENOXAPARIN 60 MG/0.6 ML SQ SCH ×2 (07:57→20:36)
[2020-02-15] MEDS: FAMOTIDINE 20 MG TABLET PO SCH (07:57)
[2020-02-15] MEDS: ASPIRIN 81 MG TABLET EC PO SCH (07:57)
[2020-02-15] MEDS: CITALOPRAM 10 MG TABLET PO SCH (07:57)
[2020-02-15 13:31] VITALS: BP 122/80
[2020-02-15 18:33] VITALS: BP 102/69
[2020-02-15] MEDS: ATORVASTATIN 80 MG TABLET PO SCH (20:36)
[2020-02-15] MEDS: metFORMIN XR 500 MG TAB.ER.24H PO SCH (20:40)
[2020-02-16 00:21] VITALS: BP 120/81
[2020-02-16 06:27] VITALS: BP 106/74
[2020-02-16] MEDS: INSULIN LISPRO 100 UNITS/ML, PEN SQ-INSULIN SCH ×2 (07:00→11:00)
[2020-02-16 08:07] VITALS: BP 120/84
[2020-02-16] MEDS: EZETIMIBE 10 MG TABLET PO SCH (08:08)
[2020-02-16] MEDS: LOSARTAN 25MG TABLET PO SCH (08:08)
[2020-02-16] MEDS: ENOXAPARIN 60 MG/0.6 ML SQ SCH (08:08)
[2020-02-16] MEDS: FAMOTIDINE 20 MG TABLET PO SCH (08:08)
[2020-02-16] MEDS: BUPROPION SR 100 MG TABLET PO SCH ×2 (08:08→20:15)
[2020-02-16] MEDS: ASPIRIN 81 MG TABLET EC PO SCH (08:08)
[2020-02-16] MEDS: MULTIVITAMINS/MINERALS TABLET PO SCH (08:08)
[2020-02-16] MEDS: CITALOPRAM 10 MG TABLET PO SCH (08:08)
[2020-02-16] MEDS: METOPROLOL SUCCINATE 50 MG TAB.ER.24H PO SCH (08:08)
[2020-02-16 12:00] VITALS: BP 94/65
[2020-02-16 17:15] VITALS: BP 129/81
[2020-02-16 19:16] VITALS: BP 101/66
[2020-02-16] MEDS: metFORMIN XR 500 MG TAB.ER.24H PO SCH (20:15)
[2020-02-16] MEDS: ATORVASTATIN 80 MG TABLET PO SCH (20:15)
[2020-02-17 00:24] VITALS: BP 111/74
[2020-02-17 06:19] VITALS: BP 106/71
[2020-02-17] MEDS: EZETIMIBE 10 MG TABLET PO SCH (08:50)
[2020-02-17] MEDS: CITALOPRAM 10 MG TABLET PO SCH (08:50)
[2020-02-17] MEDS: MULTIVITAMINS/MINERALS TABLET PO SCH (08:50)
[2020-02-17] MEDS: METOPROLOL SUCCINATE 50 MG TAB.ER.24H PO SCH (08:50)
[2020-02-17] MEDS: BUPROPION SR 100 MG TABLET PO SCH ×2 (08:50→21:02)
[2020-02-17] MEDS: ASPIRIN 81 MG TABLET EC PO SCH (08:50)
[2020-02-17] MEDS: FAMOTIDINE 20 MG TABLET PO SCH (08:50)
[2020-02-17] MEDS: ENOXAPARIN 40 MG/0.4 ML SQ SCH (08:50)
[2020-02-17 13:28] VITALS: BP 92/63
[2020-02-17] MEDS ORDERED: ALBUTEROL HFA 90 MCG/SPRAY INH PRN (13:30)
[2020-02-17 20:30] VITALS: BP 112/76
[2020-02-17] MEDS: ATORVASTATIN 80 MG TABLET PO SCH (21:02)
[2020-02-17] MEDS: metFORMIN XR 500 MG TAB.ER.24H PO SCH (21:02)
[2020-02-18 02:23] VITALS: BP 100/67
[2020-02-18 06:40] VITALS: BP 100/65
[2020-02-18 09:01] VITALS: BP 104/61
[2020-02-18] MEDS: BUPROPION SR 100 MG TABLET PO SCH (09:05)
[2020-02-18] MEDS: EZETIMIBE 10 MG TABLET PO SCH (09:05)
[2020-02-18] MEDS: FAMOTIDINE 20 MG TABLET PO SCH (09:05)
[2020-02-18] MEDS: MULTIVITAMINS/MINERALS TABLET PO SCH (09:05)
[2020-02-18] MEDS: CITALOPRAM 10 MG TABLET PO SCH (09:06)
[2020-02-18] MEDS: ENOXAPARIN 40 MG/0.4 ML SQ SCH (09:06)
[2020-02-18] MEDS: METOPROLOL SUCCINATE 50 MG TAB.ER.24H PO SCH ×2 (09:06→09:10)
[2020-02-18] MEDS: ASPIRIN 81 MG TABLET EC PO SCH (09:06)
[2020-02-18 13:14] VITALS: BP 121/75
== END 2020-02-18 18:13 | disposition home or self-care (01) | DRG 177 ==
LOC: ED 21:02 → EDIP 21:15 → 4EST 22:24
PROVIDERS: ADMIT Internal Medicine; ATTEND Internal Medicine
DX: U07.1 COVID-19 (principal); J96.01 Acute respiratory failure with hypoxia; I21.4 Non-ST elevation (NSTEMI) myocardial infarction; N17.9 Acute kidney failure, unspecified; E11.65 Type 2 diabetes mellitus with hyperglycemia; E78.5 Hyperlipidemia, unspecified; F41.1 Generalized anxiety disorder; I25.10 Atherosclerotic heart disease of native coronary artery without angina pectoris; F32.9 Major depressive disorder, single episode, unspecified; M79.7 Fibromyalgia; K21.9 Gastro-esophageal reflux disease without esophagitis; I10 Essential (primary) hypertension; M19.90 Unspecified osteoarthritis, unspecified site; I25.2 Old myocardial infarction; Z79.899 Other long term (current) drug therapy
CPT/HCPCS: 36415; 71045; 80048; 80053; 80061; 81001; 82375; 82550; 82728; 82962; 83036; 83615; 83735; 83880; 84100; 84439; 84443; 84484; 85025; 85379; 86140; 87086; 87147; 87635; 93005; 93306; 96372; G0378; J1650; J1815; J7030

== ENCOUNTER 2020-03-30 13:40 | Outpatient (CLI) | payer MEDICARE, OTHER | END 2020-03-30 23:59 | disposition home or self-care (01) | LOC: CFH 13:40 | PROVIDERS: ATTEND Internal Medicine Cardiovascular Disease | DX: Z02.9 Encounter for administrative examinations, unspecified (principal) ==

== ENCOUNTER 2020-10-12 09:05 | Outpatient (CLI) | payer MEDICARE, OTHER ==
[~2020-10-12 09:05] MED LIST changes: +ASPI-1026 PO; -ASPI-650 PO
== END 2020-10-12 23:59 | disposition home or self-care (01) ==
LOC: CVU 09:05
PROVIDERS: ATTEND Internal Medicine Cardiovascular Disease
DX: I65.02 Occlusion and stenosis of left vertebral artery (principal); I67.9 Cerebrovascular disease, unspecified
CPT/HCPCS: 93880

== ENCOUNTER 2021-01-01 11:45 | Inpatient (IN) | payer MEDICARE, OTHER ==
[~2021-01-01] VITALS: Ht 152.4 cm; Wt 58.1 kg
[~2021-01-01 11:45] MED LIST changes: +SULF-23 PO; -SULF1TAB24 PO
--- NOTE | 2021-01-01 12:34 | NUR ---
First contact with pt. Pt c/o head and neck pain r/t arthritis. Pt reports pain has been present "for months". Pt also reports occasional dizziness, none currently, occasional "feeling cold and hot". Pt placed in gown and positioned for comfort in bed with warm blanket. Continuous oxygen and BP Monitors applied, all safety measures observed.
[2021-01-01 12:47] LABS: BASOPHILS % (AUTO) 0 % (0-1); EOSINOPHILS % (AUTO) 2 % (1-7); LYMPHOCYTES % (AUTO) 20 % (22-44); MEAN CORPUSCULAR HEMOGLOBIN 30.5 pg (27.0-34.8); MEAN CORPUSCULAR HGB CONC 33.7 g/dL (32.4-35.8); MEAN PLATELET VOLUME 7.9 fL (7.4-10.4); MONOCYTES % (AUTO) 6 % (2-9); NEUTROPHILS % (AUTO) 72 % (42-75); PLATELET COUNT 150 x10^3/uL (130-400); RED BLOOD COUNT 4.72 x10^6/uL (3.82-5.3); RED CELL DISTRIBUTION WIDTH 15.2 % (9.6-15.2)
[2021-01-01 12:58] LABS: ALANINE AMINOTRANSFERASE 43 U/L (12-78); ALBUMIN 3.6 g/dL (3.4-5.0); ANION GAP 6 mmol/L (5-15); CALCIUM 9.4 mg/dL (8.5-10.1); CHLORIDE 107 mmol/L (98-107); CREATININE 1.73 mg/dL (0.55-1.02)
[2021-01-01 13:01] LABS: ALKALINE PHOSPHATASE 63 U/L (45-117); BILIRUBIN,TOTAL 0.6 mg/dL (0.2-1.0); TOTAL PROTEIN 7.3 g/dL (6.4-8.2); TROPONIN I 0.061 ng/mL (0.000-0.045)
--- NOTE | 2021-01-01 13:52 | NUR ---
Pt straight cathed per order. Pt tolerated well. Urine sample obtained, labeled at bedside, sent to lab. Pt resting in bed, denies other needs.
[2021-01-01 14:05] LABS: MICROSCOPIC INDICATED
--- NOTE | 2021-01-01 14:59 | NUR ---
BREAK RN: PT RESTING IN ROOM. VS STABLE. AT BEDSIDE. WILL CONTINUE TO MONITOR WHILE PRIMARY RN IS ON BREAK.
--- NOTE | 2021-01-01 15:48 | NUR ---
Pt resting in bed with eyes closed, resp even and unlabored, NADN.
[2021-01-01] MEDS ORDERED: SODIUM CHLORIDE FLUSH 10ML SYR IVF PRN (16:00)
[2021-01-01] MEDS ORDERED: HYDROcodone/APAP 5/325 TABLET PO PRN (16:00)
[2021-01-01] MEDS ORDERED: ONDANSETRON 2MG/ML, 2ML IVPush PRN (16:00)
[2021-01-01] MEDS ORDERED: ACETAMINOPHEN 325 MG TABLET PO PRN (16:00)
--- NOTE | 2021-01-01 16:19 | NUR ---
Report called to Cady HANCOCK on card tele. Floor ready for pt transport.
[2021-01-01 16:39] LABS: ANION GAP 9 mmol/L (5-15); CALCIUM 9.9 mg/dL (8.5-10.1); CHLORIDE 107 mmol/L (98-107); CREATININE 1.42 mg/dL (0.55-1.02)
[2021-01-01 16:40] VITALS: BP 134/79
[2021-01-01] MEDS: INSULIN LISPRO 100 UNITS/ML, PEN SQ-INSULIN SCH ×2 (17:34→20:35)
[2021-01-01] MEDS: HEPARIN 5,000 UNITS/ML, 1ML SQ SCH (17:36)
[2021-01-01] MEDS: LACTATED RINGERS 1,000 ML IV SCH (17:37)
[2021-01-01] MEDS: BUPROPION SR 100 MG TABLET PO SCH (20:32)
[2021-01-01 20:45] VITALS: BP 98/62
[2021-01-02] MEDS: HEPARIN 5,000 UNITS/ML, 1ML SQ SCH ×2 (02:00→10:15)
[2021-01-02 02:22] VITALS: BP 120/70
[2021-01-02] MEDS: LACTATED RINGERS 1,000 ML IV SCH ×2 (03:26→16:04)
[2021-01-02 05:09] LABS: ANION GAP 6 mmol/L (5-15); CALCIUM 9.2 mg/dL (8.5-10.1); CHLORIDE 111 mmol/L (98-107); CREATININE 1.21 mg/dL (0.55-1.02)
[2021-01-02 05:11] LABS: MEAN CORPUSCULAR HEMOGLOBIN 30.5 pg (27.0-34.8); MEAN CORPUSCULAR HGB CONC 33.5 g/dL (32.4-35.8); MEAN PLATELET VOLUME 8.3 fL (7.4-10.4); PLATELET COUNT 135 x10^3/uL (130-400); RED BLOOD COUNT 4.36 x10^6/uL (3.82-5.3); RED CELL DISTRIBUTION WIDTH 15.1 % (9.6-15.2)
[2021-01-02 06:10] LABS: ANISOCYTOSIS 1+; EOS#(MANUAL) 0.13 x10^3/uL (0.0-0.4); EOS% (MANUAL) 2 % (1-7); LYMPH#(MANUAL) 2.88 x10^3/uL (1-3.4); LYMPHS% (MANUAL) 45 % (22-44); MONOS#(MANUAL) 0.58 x10^3/uL (0.3-2.7); MONOS% (MANUAL) 9 % (2-9); REACTIVE LYMPHS # (MANUAL) 0.19 x10^3/uL (0-0); REACTIVE LYMPHS % (MANUAL) 3 % (0-0); SEG#(MANUAL) 2.62 x10^3/uL (1.8-6.8); SEGS% (MANUAL) 41 % (42-75)
[2021-01-02 06:11] LABS: <PLATELET ESTIMATE> ADEQUATE; <PLT MORPHOLOGY> NORMAL PLT MORPH; OVALOCYTES 1+
[2021-01-02] MEDS: INSULIN LISPRO 100 UNITS/ML, PEN SQ-INSULIN SCH ×3 (06:20→16:05)
[2021-01-02] MEDS ORDERED: REGADENOSON 0.4 MG/5 ML SYRINGE ONE (07:52)
[2021-01-02] MEDS ORDERED: SENNA/DOCUSATE TABLET PO SCH (09:00)
[2021-01-02] MEDS ORDERED: ASPIRIN 81 MG TABLET EC PO SCH (09:00)
[2021-01-02] MEDS ORDERED: POLYETHYLENE GLYCOL 17 GM PACKET PO SCH (09:00)
[2021-01-02] MEDS ORDERED: EZETIMIBE 10 MG TABLET PO SCH (09:00)
[2021-01-02] MEDS ORDERED: METOPROLOL SUCCINATE 50 MG TAB.ER.24H PO SCH (09:00)
[2021-01-02 09:09] LABS: ALBUMIN 3.2 g/dL (3.4-5.0); BILIRUBIN, DIRECT 0.1 mg/dL (0.1-0.2)
[2021-01-02 09:11] LABS: BILIRUBIN,INDIRECT 0.5 mg/dL (0.0-2.0); BILIRUBIN,TOTAL 0.6 mg/dL (0.2-1.0); TOTAL PROTEIN 6.4 g/dL (6.4-8.2)
[2021-01-02 10:00] VITALS: BP 135/79
[2021-01-02] MEDS: BUPROPION SR 100 MG TABLET PO SCH (10:15)
[2021-01-02 13:01] VITALS: BP 142/81
[2021-01-02] MEDS ORDERED: ISOS30TA8 PO (15:29)
[2021-01-02] MEDS ORDERED: ROSU5TAB PO (15:30)
== END 2021-01-02 17:17 | disposition home or self-care (01) | DRG 281 ==
LOC: ED 13:20 → SUATTDRO 15:35 → 5SO 15:44
PROVIDERS: ADMIT Internal Medicine; ATTEND Internal Medicine
PROC: 0T9B70Z Drainage of Bladder with Drainage Device, Via Natural or Artificial Opening (ICD-10-PCS; principal; 2021-01-01)
DX: I21.4 Non-ST elevation (NSTEMI) myocardial infarction (principal); N17.9 Acute kidney failure, unspecified; I25.110 Atherosclerotic heart disease of native coronary artery with unstable angina pectoris; E78.5 Hyperlipidemia, unspecified; E11.22 Type 2 diabetes mellitus with diabetic chronic kidney disease; E86.0 Dehydration; F41.1 Generalized anxiety disorder; F41.8 Other specified anxiety disorders; G89.29 Other chronic pain; I12.9 Hypertensive chronic kidney disease with stage 1 through stage 4 chronic kidney disease, or unspecified chronic kidney disease; M19.90 Unspecified osteoarthritis, unspecified site; N18.30 Chronic kidney disease, stage 3 unspecified; H53.8 Other visual disturbances; R51.9 Headache, unspecified; I25.2 Old myocardial infarction; Z95.5 Presence of coronary angioplasty implant and graft
CPT/HCPCS: 36415; 70450; 71045; 76775; 78452; 80048; 80053; 80076; 81001; 82962; 84484; 85025; 93005; 93017; 93306; G0378; J1644; J2785; A9502; J7120

== ENCOUNTER 2021-02-23 09:02 | Inpatient (IN) | payer MEDICARE, OTHER ==
[~2021-02-23] VITALS: Ht 152.4 cm; Wt 54.4 kg
[~2021-02-23 09:02] MED LIST changes: +ISOS30TA8 PO; +ROSU5TAB PO
--- NOTE | 2021-02-23 09:04 | NUR ---
[facility] CODE CARDIAC @ 0840 PER EMS 15 OUT [facility] CARDS @ 0859 DR SERRANO
[2021-02-23] MEDS ORDERED: BIVALIRUDIN 250 MG ONE (09:05)
[2021-02-23] MEDS ORDERED: HEPARIN 1,000 UNITS/ML, 10ML ONE (09:05)
[2021-02-23] MEDS ORDERED: MIDAZOLAM 1 MG/ML, 5ML ONE (09:05)
[2021-02-23] MEDS ORDERED: FENTANYL PF 100 MCG/2ML ONE (09:05)
[2021-02-23] MEDS ORDERED: TICAGRELOR 90 MG TABLET ONE (09:05)
[2021-02-23] MEDS ORDERED: VERAPAMIL 2.5 MG/ML, 2ML ONE (09:05)
[2021-02-23] MEDS ORDERED: LIDOCAINE 2%, 20ML ONE (09:05)
--- NOTE | 2021-02-23 09:05 | NUR ---
pt BIB fire c/o [facility] this AM and possible ST elevation with pre-alert for Code Cardiac upon admit, per report, pt had a fall this AM trying to get out of bed and is c/o neck pain. no LOC. pt has had recent tooth extraction. pt has hx of [place] weith stent placement a few years ago pt denies CP denies SOB. pt is alert and talking.
--- NOTE | 2021-02-23 09:10 | NUR ---
Dr Burch at bedside. Code Cardiac has been cancelled at this time
--- NOTE | 2021-02-23 09:22 | NUR ---
lab has been to bedside to draw. CXR has been to bedside pt states that she did not fall, that she "sat down" "because she likes to" pt has been undressd and placed in gown. warm blankets given for comfort
[2021-02-23] MEDS ORDERED: SODIUM CHLORIDE FLUSH 10ML SYR IVF ONE (09:30)
[2021-02-23] MEDS ORDERED: MORPHINE SULFATE 4 MG/ML, 1ML IVPush PRN (09:30)
[2021-02-23] MEDS ORDERED: ASPIRIN 81 MG TABLET CHEW PO ONE (09:30)
[2021-02-23 09:40] LABS: BASOPHILS % (AUTO) 1 % (0-1); EOSINOPHILS % (AUTO) 4 % (1-7); LYMPHOCYTES % (AUTO) 44 % (22-44); MEAN CORPUSCULAR HGB CONC 33.6 g/dL (32.4-35.8); MEAN PLATELET VOLUME 8.4 fL (7.4-10.4); MONOCYTES % (AUTO) 6 % (2-9); NEUTROPHILS % (AUTO) 46 % (42-75); PLATELET COUNT 130 x10^3/uL (130-400); RED BLOOD COUNT 3.65 x10^6/uL (3.82-5.3); RED CELL DISTRIBUTION WIDTH 14.4 % (9.6-15.2)
[2021-02-23 09:41] LABS: ALANINE AMINOTRANSFERASE 19 U/L (12-78); ALBUMIN 2.7 g/dL (3.4-5.0); ANION GAP 7 mmol/L (5-15); CALCIUM 8.6 mg/dL (8.5-10.1); CREATININE 1.22 mg/dL (0.55-1.02)
--- NOTE | 2021-02-23 09:45 | NUR ---
c-collar has been placed by tech
--- NOTE | 2021-02-23 09:59 | NUR ---
pt in RAD
[2021-02-23 10:03] LABS: BILIRUBIN,TOTAL 0.3 mg/dL (0.2-1.0); CHLORIDE 115 mmol/L (98-107)
[2021-02-23 10:04] LABS: ALKALINE PHOSPHATASE 40 U/L (45-117); TOTAL PROTEIN 5.6 g/dL (6.4-8.2); TROPONIN I 0.084 ng/mL (0.000-0.045)
[2021-02-23] MEDS ORDERED: PLEASE ENTER ALLERGIES MC SCH (10:30)
--- NOTE | 2021-02-23 10:35 | NUR ---
pt has been returned from RAD. resting in position of comfort. family at [facility]. pt and daughter updated on POC
--- NOTE | 2021-02-23 11:00 | NUR ---
pt denies neck pain at this time. resting calmly in posiiton of comfort. chart up for MD recheck
--- NOTE | 2021-02-23 11:30 | NUR ---
pt rogel been moved from T3 to room 7. report to Alexa Burch has been to bedside for recheck. pt to be admitted. c-collar has been removed per MD RUIZ
[2021-02-23] MEDS ORDERED: EZET10TA70 PO (13:32)
[2021-02-23] MEDS ORDERED: LISI-170 PO (13:32)
[2021-02-23] MEDS ORDERED: METO25TA35 PO (13:32)
[2021-02-23] MEDS ORDERED: ISOS30TA8 PO (13:32)
[2021-02-23] MEDS ORDERED: ASPI-963 PO (13:32)
[2021-02-23] MEDS ORDERED: CHOL10003 PO (13:32)
[2021-02-23] MEDS ORDERED: METF500T27 PO (13:32)
[2021-02-23] MEDS ORDERED: MAGN64TA7 PO (13:32)
[2021-02-23] MEDS ORDERED: DAPA10TA PO (13:32)
[2021-02-23] MEDS ORDERED: ROSU40TA PO (13:32)
[2021-02-23] MEDS ORDERED: CITA20TA9 PO (13:32)
[2021-02-23] MEDS ORDERED: BUPR100T11 PO (13:32)
[2021-02-23] MEDS ORDERED: HYDR-3241 PO (13:32)
[2021-02-23] MEDS ORDERED: ALPR0.254 PO (13:32)
[2021-02-23] MEDS ORDERED: MULT-464 PO (13:32)
--- NOTE | 2021-02-23 13:37 | NUR ---
TASK RN: CLEAN CATCH UA COLLECTED & MED RECC COMPLETED-INPATIENT RN MADE AWARE OF UPDATES PRIOR TO TRANSFER
--- NOTE | 2021-02-23 13:38 | NUR ---
pt transferred to [facility] bed with tech at bedside on monitor.
[2021-02-23 13:49] VITALS: BP 138/81
[2021-02-23 13:49] LABS: MICROSCOPIC NOT IND
[2021-02-23] MEDS ORDERED: METOPROLOL TARTRATE 25 MG TAB PO PRN (14:30)
[2021-02-23] MEDS ORDERED: ONDANSETRON ODT 4 MG PO PRN (14:30)
[2021-02-23] MEDS ORDERED: ONDANSETRON 2MG/ML, 2ML IVPush PRN (14:30)
[2021-02-23] MEDS ORDERED: NITROGLYCERIN 0.4 MG BOTTLE (25 TABS) SL PRN (14:30)
[2021-02-23] MEDS ORDERED: ENOXAPARIN 30 MG/0.3 ML SQ SCH (15:00)
[2021-02-23 15:32] LABS: TROPONIN I 0.072 ng/mL (0.000-0.045)
[2021-02-23] MEDS: SODIUM CHLORIDE 0.9% 1,000 ML IV SCH (16:51)
[2021-02-23] MEDS: metFORMIN XR 500 MG TAB.ER.24H PO SCH (16:51)
[2021-02-23] MEDS: INSULIN LISPRO 100 UNITS/ML, PEN SQ-INSULIN SCH ×2 (16:53→20:35)
[2021-02-23 17:00] VITALS: BP 138/81
[2021-02-23 18:35] VITALS: BP 129/81
[2021-02-23] MEDS: BUPROPION 100 MG TABLET PO SCH (20:14)
[2021-02-23 20:59] LABS: TROPONIN I 0.089 ng/mL (0.000-0.045)
[2021-02-23] MEDS ORDERED: ATORVASTATIN 80 MG TABLET PO SCH (21:00)
[2021-02-24 01:08] VITALS: BP 103/70
[2021-02-24 05:33] LABS: BASOPHILS % (AUTO) 1 % (0-1); EOSINOPHILS % (AUTO) 5 % (1-7); LYMPHOCYTES % (AUTO) 44 % (22-44); MEAN CORPUSCULAR HEMOGLOBIN 30.9 pg (27.0-34.8); MEAN CORPUSCULAR HGB CONC 33.7 g/dL (32.4-35.8); MEAN PLATELET VOLUME 8.4 fL (7.4-10.4); MONOCYTES % (AUTO) 6 % (2-9); NEUTROPHILS % (AUTO) 44 % (42-75); PLATELET COUNT 150 x10^3/uL (130-400); RED BLOOD COUNT 4.18 x10^6/uL (3.82-5.3); RED CELL DISTRIBUTION WIDTH 14.8 % (9.6-15.2)
[2021-02-24] MEDS ORDERED: ASPIRIN 81 MG TABLET EC PO SCH (06:00)
[2021-02-24 06:01] LABS: ANION GAP 5 mmol/L (5-15); CALCIUM 8.7 mg/dL (8.5-10.1); CHLORIDE 114 mmol/L (98-107); CREATININE 0.98 mg/dL (0.55-1.02)
[2021-02-24] MEDS: INSULIN LISPRO 100 UNITS/ML, PEN SQ-INSULIN SCH ×2 (07:00→11:00)
[2021-02-24] MEDS ORDERED: CITALOPRAM 10 MG TABLET PO SCH (09:00)
[2021-02-24] MEDS ORDERED: LISINOPRIL 20 MG TABLET PO SCH (09:00)
[2021-02-24] MEDS ORDERED: CHOLECALCIFEROL 1,000 UNIT TABLET PO SCH (09:00)
[2021-02-24] MEDS ORDERED: ISOSORBIDE MONONITRATE ER 30 MG TABLET PO SCH (09:00)
[2021-02-24] MEDS ORDERED: MAGNESIUM CHLORIDE 64 MG HOMEMEDPO SCH (09:00)
[2021-02-24] MEDS ORDERED: EZETIMIBE 10 MG TABLET PO SCH (09:00)
[2021-02-24] MEDS ORDERED: MULTIVITAMINS/MINERALS TABLET PO SCH (09:00)
[2021-02-24] MEDS: BUPROPION 100 MG TABLET PO SCH (09:35)
[2021-02-24] MEDS: metFORMIN XR 500 MG TAB.ER.24H PO SCH (09:35)
[2021-02-24 09:50] VITALS: BP 115/80
[2021-02-24] MEDS: SODIUM CHLORIDE 0.9% 1,000 ML IV SCH (10:30)
[2021-02-24] MEDS ORDERED: NITR0.4T28 SL (12:34)
[2021-02-24] MEDS ORDERED: INSU100I11 SQ-INSULIN (12:34)
== END 2021-02-24 15:41 | disposition home or self-care (01) | DRG 637 ==
LOC: EDBD → ED 11:35 → EDIP 11:38 → MERGE 11:38 → 5SO 13:41
PROVIDERS: ADMIT Internal Medicine; ATTEND Internal Medicine
DX: E11.649 Type 2 diabetes mellitus with hypoglycemia without coma (principal); I21.A1 Myocardial infarction type 2; E11.51 Type 2 diabetes mellitus with diabetic peripheral angiopathy without gangrene; I10 Essential (primary) hypertension; I25.10 Atherosclerotic heart disease of native coronary artery without angina pectoris; I25.2 Old myocardial infarction; W18.39XA Other fall on same level, initial encounter; Y93.89 Activity, other specified; Y92.89 Other specified places as the place of occurrence of the external cause; Y99.8 Other external cause status
CPT/HCPCS: 36415; 70450; 71045; 72020; 72050; 80048; 80053; 81003; 82962; 83036; 84484; 85025; 93005; 96372; 99285; G0378; J0583; J1644; J1650; J2250; J3010; J1815; J7030